=== PATIENT | female | born 1975 | race Caucasian/White ===

== ENCOUNTER 2016-12-08 15:45 | Observation (INO) | payer OTHER ==
[2016-12-08] MEDS ORDERED: Sodium Chloride 0.9% 1000 ML 1,000 ML IV STA (17:41)
[2016-12-08] MEDS ORDERED: Zofran 4 MG/2 ML VIAL IV ONE (17:41)
[2016-12-08] MEDS ORDERED: Adacel Vial IM ONE ×2 (17:41→18:02)
[2016-12-08] MEDS ORDERED: Vancomycin 1GM/ Ns 250ML*** 250 ML IV ONE ×2 (17:43→18:02)
[2016-12-08] MEDS ORDERED: Hydromorphone 1 mg/ml Ampule IV ONE (17:44)
--- NOTE | 2016-12-08 17:51 | ERPHSYRPT ---
- History of Present Illness Time Seen by Provider: 12/08/16 17:30 Source: patient Exam Limitations: clinical condition Patient Subjective Stated Complaint: thursday noticed a small abcess and now it is open and draining serous drainage,small amt of redness around site, pt had fever on thursday and started on bactrim Triage Nursing Assessment: pt alert , resp easy, skin w/d. pink walked in , Physician History: PATIENT NOTICED POSSIBLE LOCALIZED SWELLING PIMPLE FROM INSECT BITE TO MID LEFT POSTERIOR THIGH OVER THE PAST 7 DAYS. THE SWELLING, DRAINAGE, AND PAIN PROGRESSIVELY WORSE. HAS ASSOCIATED FEVER, NO IMPROVEMENT AFTER 3 DAY COURSE OF ANTIBIOTICS BACTRIM DS. Method of Injury: unknown Occurred: last week Quality: constant Severity of Pain-Max: moderate Severity of Pain-Current: moderate Lower Extremities Pain: leg: left Modifying Factors: Improves With: movement Associated Symptoms: none Allergies/Adverse Reactions: Penicillins Allergy (Verified 12/08/16 17:24) codeine Adverse Reaction (Verified 12/08/16 17:24) Home Medications: Sulfamethoxazole/Trimethoprim [Bactrim Ds Tablet] 1 ea BID 12/08/16 [History] Hx Tetanus, Diphtheria Vaccination/Date Given: No (2002) Hx Influenza Vaccination/Date Given: No Hx Pneumococcal Vaccination/Date Given: No Immunizations Up to Date: Yes - Review of Systems Constitutional: Fever Eyes: No Symptoms Ears, Nose, & Throat: No Symptoms Respiratory: No Symptoms, No Cough, No Dyspnea Cardiac: No Chest Pain, No Edema, No Syncope Abdominal/Gastrointestinal: No Symptoms, No Abdominal Pain, No Nausea, No Vomiting, No Diarrhea Genitourinary Symptoms: No Dysuria Musculoskeletal: Other (LEFT PAIN, REDNESS, SWELLING) Skin: No Rash Neurological: No Dizziness, No Focal Weakness, No Sensory Changes Psychological: No Symptoms Endocrine: No Symptoms All Other Systems: Reviewed and Negative - Past Medical History Pertinent Past Medical History: No - Past Surgical History Past Surgical History: Yes Gastrointestinal: Cholecystectomy Other Surgical History: tubes in ears - Social History Smoking Status: Current every day smoker Exposure to second hand smoke: Yes Drug Use: none Patient Lives Alone: No - Female History Hx Last Menstrual Period: november - Nursing Vital Signs Nursing Vital Signs: Initial Vital Signs Temperature 98.6 F Temperature Source Oral Pulse Rate 85 Respiratory Rate 16 Blood Pressure [Right Arm] 100/64 Pain Intensity 2 - Physical Exam General Appearance: alert Eyes, Ears, Nose, Throat Exam: moist mucous membranes Neck Exam: non-tender, supple Cardiovascular/Respiratory Exam: chest non-tender, normal breath sounds, regular rate/rhythm, no respiratory distress Gastrointestinal/Abdominal Exam: non-tender, guarding Back Exam: normal inspection, No vertebral tenderness Legs Exam: left leg: soft tissue tenderness (THERE IS A 7MM X 6MM OPEN WOUND LEFT MID POSTERIOR THIGH WITH SURROUNDING FLLUCTUANCE AND ERYTHERM, MARKED SEROSANGUINOUS DRAINAGE), other (LEFT PEDIS PULSE 2+) DTR - Lower Extremities Exam: knee (R): 2+, knee (L): 2+, ankle (R): 2+, ankle ( L): 2+ Neuro/Tendon Exam: normal sensation, normal motor functions Mental Status Exam: alert, oriented x 3, cooperative Skin Exam: normal color, warm, dry SpO2 Interpretation: normal SpO2: 99 Oxygen Delivery: Room Air Ordered Tests: Active Orders 24 hr Category Date Time Status Up Ad Mirella ROUTINE Activity 12/08/16 19:12 Ordered Admission/Status Order ROUTINE Care 12/08/16 19:11 Ordered Call Admit Doctor for Orders ON ADMISSION Care 12/08/16 19:12 Ordered Code Status Order ROUTINE Care 12/08/16 19:11 Ordered IV Care Q6H Care 12/08/16 19:11 Ordered IV Insertion STAT Care 12/08/16 17:41 Active Vital Signs Q4H Care 12/08/16 19:11 Ordered Consult Surgery ROUTINE Cons 12/08/16 19:11 Ordered Regular Diet Diet 12/08/16 Dinner Ordered BLOOD CULTURE Stat Lab 12/08/16 18:05 Received BMP Stat Lab 12/08/16 18:00 Completed CBC W DIFF Stat Lab 12/08/16 18:00 Completed CULTURE,WOUND Stat Lab 12/08/16 18:11 Received Transfer Order Routine Transfer 12/08/16 19:10 Ordered Medication Summary Discontinued Medications Generic Name Dose Route Start Last Admin Trade Name Freq PRN Reason Stop Dose Admin Diphtheria/Tetanus/Acell Pertussis 0.5 ml 12/08/16 17:41 12/08/16 18:10 Adacel Vial IM 12/08/16 17:42 0.5 ml .ONCE ONE Administration Diphtheria/Tetanus/Acell Pertussis Confirm 12/08/16 18:02 Adacel Vial Administered 12/08/16 18:03 Dose 0.5 ml IM .STK-MED ONE Hydromorphone HCl 1 mg 12/08/16 17:44 12/08/16 18:09 Hydromorphone 1 Mg/Ml Ampule IV 12/08/16 17:45 Not Given STAT ONE Hydromorphone HCl Confirm 12/08/16 18:02 Hydromorphone 1 Mg/Ml Ampule Administered 12/08/16 18:03 Dose 1 mg .ROUTE .STK-MED ONE Sodium Chloride 1,000 mls @ 999 mls/hr 12/08/16 17:41 12/08/16 18:08 Sodium Chloride 0.9% 1000 Ml IV 12/08/16 18:41 999 mls/hr .Q1H1M STA Administration Vancomycin HCl 250 mls @ 167 mls/hr 12/08/16 17:43 12/08/16 18:08 Vancomycin 1gm/ Ns 250ml IV 12/08/16 19:12 167 mls/hr STAT ONE Administration Sodium Chloride Confirm 12/08/16 18:02 Sodium Chloride 0.9% 1000 Ml Administered 12/08/16 18:03 Dose 1,000 mls @ ud .ROUTE .STK-MED ONE Vancomycin HCl Confirm 12/08/16 18:02 Vancomycin 1gm/ Ns 250ml Administered 12/08/16 18:03 Dose 250 mls @ ud IV .STK-MED ONE Ondansetron HCl 4 mg 12/08/16 17:41 12/08/16 18:09 Zofran 4 Mg/2 Ml Vial IV 12/08/16 17:42 Not Given STAT ONE Ondansetron HCl Confirm 12/08/16 18:02 Zofran 4 Mg/2 Ml Vial Administered 12/08/16 18:03 Dose 4 mg .ROUTE .STK-MED ONE Lab/Rad Data: Laboratory Result Diagrams 12/08/16 18:00 12/08/16 18:00 Laboratory Results 12/08/16 12/08/16 Range/Units 18:00 18:00 WBC 7.6 (4.0-10.5) K/mm3 RBC 3.87 L (4.1-5.4) M/mm3 Hgb 11.9 L (12.0-16.0) gm/dl Hct 36.2 (35-47) % MCV 93.5 (78-100) fl MCH 30.7 (26-32) pg MCHC 32.9 (32-36) g/dl RDW 12.9 (11.5-14.0) % Plt Count 295 (150-450) K/mm3 MPV 10.6 H (6-9.5) fl Gran % 71.7 H (36.0-66.0) % Lymphocytes % 21.5 L (24.0-44.0) % Monocytes % 4.6 (0.0-12.0) % Eosinophils % 1.8 (0.00-5.0) % Basophils % 0.4 (0.0-0.4) % Basophils # 0.03 (0-0.4) Sodium 140 (136-145) mEq/L Potassium 3.8 (3.5-5.1) mEq/L Chloride 105 (98-107) mEq/L Carbon Dioxide 22.6 (21-32) mEq/L Anion Gap 16.6 H (5-15) MEQ/L BUN 8 L (9-20) mg/dL Creatinine 0.95 (0.55-1.30) mg/dl Estimated GFR > 60 ML/MIN Glucose 85 (70-110) MG/DL Calcium 9.2 (8.5-10.1) mg/dL - Progress Progress Note: 12/08/16 19:06 PATIENT GIVEN IV NORMAL SALINE 1 LITER BOLUS, VANCOMYCIN 1GM IVPB Discussed with : Dario (DISCUSSED WITH DR OLMEDO AT 1910 FOR ADMIT) - Departure Time of Disposition: 19:20 Departure Disposition: Observation Clinical Impression: ABSCESS LEFT POSTERIOR THIGH Condition: Stable Critical Care Time: No Referrals: BERT OLMEDO [Primary Care Provider] -
[2016-12-08] MEDS ORDERED: Zofran 4 MG/2 ML VIAL ONE (18:02)
[2016-12-08] MEDS ORDERED: Hydromorphone 1 mg/ml Ampule ONE (18:02)
[2016-12-08] MEDS ORDERED: Sodium Chloride 0.9% 1000 ML 1,000 ML ONE (18:02)
[2016-12-08 18:23] LABS: BASOPHIL % 0.4 % (0.0-0.4); Eosinophil % 1.8 % (0.00-5.0); Granulocytes % 71.7 % (36.0-66.0); Lymphocytes % 21.5 % (24.0-44.0); Mean Cell Volume 93.5 fl (78-100); Mean Corpuscular Hemoglobin 30.7 pg (26-32); Mean Platelet Volume 10.6 fl (6-9.5); Monocytes % 4.6 % (0.0-12.0); Platelet Count 295 K/mm3 (150-450); Red Blood Count 3.87 M/mm3 (4.1-5.4); Red Cell Distribution Width 12.9 % (11.5-14.0); White Blood Count 7.6 K/mm3 (4.0-10.5)
[2016-12-08 18:40] LABS: ANION GAP 16.6 MEQ/L (5-15); BLOOD UREA NITROGEN 8 mg/dL (9-20); CHLORIDE 105 mEq/L (98-107); Carbon Dioxide 22.6 mEq/L (21-32); Glucose 85 MG/DL (70-110); Potassium 3.8 mEq/L (3.5-5.1); SODIUM 140 mEq/L (136-145)
[2016-12-08] MEDS ORDERED: Zofran 4 MG/2 ML VIAL IV PRN (19:11)
[2016-12-08] MEDS ORDERED: TYLENOL 325 MG PO PRN (19:11)
[2016-12-08] MEDS ORDERED: NORCO 5/325 MG PO PRN (19:14)
[2016-12-08] MEDS: Sodium Chloride 0.9% 1000 ML 1,000 ML IV SCH (20:57)
[2016-12-08] MEDS: CLINDAMYCIN-D5W 600 MG/50 ML*** 50 ML IV SCH (23:17)
[2016-12-09] MEDS: CLINDAMYCIN-D5W 600 MG/50 ML*** 50 ML IV SCH ×3 (06:17→21:20)
[2016-12-09] MEDS ORDERED: MOTRIN 200 MG PO PRN (07:39)
[2016-12-09] MEDS ORDERED: MOTRIN 400 MG PO PRN (07:44)
[2016-12-09] MEDS ORDERED: NON-FORMULARY ITEM (Ranitidine Hcl [Zantac] 150 MG) PO SCH (10:00)
--- NOTE | 2016-12-09 10:06 | HP ---
CHIEF COMPLAINT: Small pimple and pain on the back of the left thigh. HISTORY OF PRESENT ILLNESS: The patient is a 40 year-old white female presented approximately a week ago to outpatient and was begun on Bactrim for small abscess on the posterior thigh. The patient reports it had gotten worse over the ensuing several days. It opened and began draining. She said a skirt maker friend saw it and suggested she go to the hospital emergency room where she was subsequently admitted to the hospital for IV antibiotic treatments. PAST MEDICAL/SURGICAL HISTORY: Cholecystectomy. Bilateral tubes in ears. HOME MEDICATIONS: Includes Zantac 150 mg a day, Bactrim DS twice daily. ALLERGIES: PENICILLIN, CODEINE. SOCIAL HISTORY: The patient is a smoker. PHYSICAL EXAMINATION: Revealed a well-nourished, well-developed 40 year-old white female currently in no obvious distress. Her vital signs showed a temperature 97.8F, pulse 95, respiratory rate 18, blood pressure 89/55. O2 saturations 92% on room air. HEENT: Normocephalic, atraumatic. Pupils equal round reactive to light. Extraocular movements intact. Oropharynx is pink and moist. NECK: Supple without lymphadenopathy, thyromegaly or JVD. CHEST: Clear to auscultation with good air movement bilaterally. HEART: Regular rate and rhythm without murmurs, rubs or gallops. ABDOMEN: Soft, nontender, nondistended without hepatosplenomegaly or masses. EXTREMITIES: Revealed posterior thigh region being erythematous and indurated to approximately 10 cm in diameter. There is a central area that is open and draining of purulent bloody drainage. The patient otherwise has no clubbing, cyanosis or edema. NEUROLOGIC: She is alert and oriented x3 with no focal deficits. LAB DATA AND TESTS: Revealed a white blood cell count of 7,600, hemoglobin 11.9, PLT 295,000. Metabolic panel essentially normal. ASSESSMENT: A patient with draining abscess of the posterior left thigh. She is receiving IV Vancomycin and IV Clindamycin. Surgical consultation will be obtained to see if any further drainage is necessary as well as physical therapy for wound care management.
[2016-12-09] MEDS: VANCOCIN 1 GM VIAL*** 1 GM in Sodium Chloride 0.9% 250 ML 250 ML IV SCH ×2 (11:15→21:56)
[2016-12-09] MEDS: Pepcid 20 MG PO SCH (11:15)
[2016-12-09] MEDS: Sodium Chloride 0.9% 1000 ML 1,000 ML IV SCH ×2 (11:18→19:14)
[2016-12-09] MEDS ORDERED: SUBLIMAZE 100 MCG/2 ML IV ONE (12:49)
[2016-12-09] MEDS ORDERED: Lactated Ringers 0 ML IV ONE (15:05)
[2016-12-09] MEDS: Levofloxacin 500MG/100ML D5W 100 ML IV SCH ×2 (16:42→19:18)
[2016-12-09] MEDS ORDERED: MORPHINE SULFATE 4 MG INJ IV PRN (19:55)
[2016-12-09] MEDS ORDERED: NORCO 5/325 MG PO PRN (19:59)
[2016-12-10] MEDS: CLINDAMYCIN-D5W 600 MG/50 ML*** 50 ML IV SCH (05:33)
[2016-12-10] MEDS ORDERED: Zofran 4 MG/2 ML VIAL IV ONE (08:00)
[2016-12-10] MEDS ORDERED: Decadron 4 MG INJ IV ONE (08:00)
[2016-12-10] MEDS ORDERED: DIPRIVAN 200 MG/20 ML IV ONE (08:00)
[2016-12-10] MEDS ORDERED: TORAdol 30 mg Injection IJ ONE (08:00)
--- NOTE | 2016-12-10 08:18 | CONS ---
CONSULT DATE: 12/09/2016 This patient was seen for Dr. Everton Noland who was consulted yesterday. HISTORY: A 40 year-old female a week or so ago had some sore on her leg treated with Bactrim originally and failed to improve. She ended up in the hospital with IV antibiotics. There was question whether she had underlying necrosis, abscess or infection. It was felt that she may benefit from excisional debridement and drainage. Dr. Noland was consulted. He did not have time and he asked that I come by and check on the patient. PAST MEDICAL HISTORY: Tubes and cholecystectomy in the past. MEDICATIONS: Zantac. She had been on Bactrim previously. She had been on Vancomycin and clindamycin here. ALLERGIES: PENICILLIN, CODEINE. SOCIAL HISTORY: Smoker. REVIEW OF SYSTEMS: Twelve systems reviewed per admission assessment. No current chest pain or palpitations. Just sore on the posterior left thigh. Otherwise she is currently afebrile. LAB DATA AND TESTS: Her white blood cell count 7.6. PHYSICAL EXAMINATION: Vital signs stable. GENERAL: No acute distress. HEENT: Sclera nonicteric. NECK: No JVD. CHEST: Equal excursion, nonlabored breathing. CVS: Regular rate and rhythm. ABDOMEN: Soft. EXTREMITIES: On leg she has inflammation, induration, open wound with question area of some underlying fat necrosis or other deeper infection. NEURO: Alert, moving extremities symmetrically. IMPRESSION: Nonhealing wound left thigh whether there is any fat necrosis that needs excisionally debrided as well as any underlying infection that needs debrided or drained. Will proceed in the OR. General risk of bleeding or infection, risk of nonhealing of the wound possibly requiring other procedures. She understands she will need packing afterwards and heal by secondary intent. She understands all the above as well as general risk of anesthesia, deep venous thrombosis, pulmonary embolism, pneumonia but not limited to. Will proceed with excisional debridement left thigh possible drainage of any other deeper infection depending on operative findings. Again, this patient was seen for Dr. Everton Noland who was consulted.
--- NOTE | 2016-12-10 08:32 | OP ---
SURGERY DATE/TIME: 12/09/2016 1744 PREOPERATIVE DIAGNOSIS: Nonhealing wound left thigh in need of debridement and drainage. POSTOPERATIVE DIAGNOSIS: Nonhealing wound left thigh in need of debridement and drainage. PROCEDURE: Excisional debridement of skin as well as some devitalized subcutaneous fat 4 cm deep, 3 cm long, 2 cm wide down to the underlying fascia and drainage of additional abscess as well. SURGEON: Dr. Berny Kamara. ANESTHESIA: General. ESTIMATED BLOOD LOSS: Minimal. INDICATIONS: As noted above. Risks and benefits explained in detail and not limited to, as outlined per surgery consult and consent obtained. The site was confirmed with the patient in the preoperative holding area. DESCRIPTION OF PROCEDURE AND FINDINGS: The patient is taken to the OR. General anesthesia induced. Placed in lateral position appropriate pad positioning by anesthesia and OR staff. The thigh was prepped and draped in the usual sterile fashion. After official time out and no disagreement with the planned procedure, sharp debridement of surrounding skin that looked like poor quality around the puncture wound area whether this was an insect bite before or not is unclear. Either way dissection was carried down into the some underlying poor quality fat tissue, had some potential fat necrosis and devitalized fat. Dissection was carried deeper. There was some purulence that was drained and cultured. Sharp debridement was taken down 4 cm deep, 3 cm wide as it tunneled more anteriorly as well as 2 cm wide so 4 cm deep, 3 cm long and 2 cm wide. Sharp debridement accomplished down to oozing viable tissue. With some pin point cautery good hemostasis was noted. Copious amount of irrigation irrigating until clear. I felt the patient would benefit from packing. Iodoform 0.5 inch was packed down in the base of the wound. Sterile dressing applied. The patient tolerated the procedure well. There were no immediate complications. Findings discussed with the family out in the waiting area. Again, this patient was seen for Dr. Everton Noland who was consulted yesterday when he was universal branch consultant.
[2016-12-10] MEDS ORDERED: TROUGH DRUG LEVELS IJ ONE (09:30)
[2016-12-10] MEDS: Pepcid 20 MG PO SCH (10:09)
[2016-12-10] MEDS: VANCOCIN 1 GM VIAL*** 1 GM in Sodium Chloride 0.9% 250 ML 250 ML IV SCH (10:09)
--- NOTE | 2016-12-10 10:43 | PCM.DCORD ---
- Discharge Disposition: Home, Self-Care Condition: Stable Prescriptions: New Vancomycin/0.9 % Sod Chloride [Vancomycin 1 G/100Ml-0.9% NaCl] 1 gm IV Q12H # 0 plast..bag Changed Sulfamethoxazole/Trimethoprim [Bactrim Ds Tablet] 1 each PO BID #20 tablet No Action Sulfamethoxazole/Trimethoprim [Bactrim Ds Tablet] 1 ea BID Ibuprofen 200 mg [Motrin 200 mg] 400 mg PO Q4-6HPRN PRN PRN Reason: Pain Acetaminophen 325 mg [Tylenol 325 mg] 650 mg PO Q4-6HPRN PRN PRN Reason: Pain And/Or Fever Ranitidine HCl [Zantac] 150 mg PO DAILY Instructions: Incision and Drainage of a Skin Abscess Additional Instructions: [facility] up with at [facility] 12/17/16@ 9:25a.m. COME TO [facility] FOR YOUR I.V. ANTIBIOTICS. YOU WILL NEED TO ARRIVE TODAY, 12/10/16, AT 5:00 PM. YOU WILL NEED TO REGISTER BEFORE THE FIRST INFUSION. YOU WILL BE ON A SCHEDULE DAILY AT 6:00 AM AND 5:00 PM AND WILL COMPLETE 5 DAYS. Follow up with: BERT OLMEDO [Primary Care Provider] - 12/16/16 10:30 am MINDI MOROCHO [COURTESY STAFF] - 12/17/16 9:25 am Forms: Discharge Instructions, Patient Portal Information
[2016-12-10 12:29] VITALS: BP 101/57; PULSE 88; O2SAT 99
== END 2016-12-10 12:50 | disposition home or self-care (01) ==
LOC: ED 15:45 → MED SURG 20:03
PROVIDERS: ADMIT Family Medicine; ATTEND Family Medicine
PROC: 0JBM0ZZ Excision of Left Upper Leg Subcutaneous Tissue and Fascia, Open Approach (ICD-10-PCS; principal; 2016-12-09)
DX: L02.416 Cutaneous abscess of left lower limb (principal); Z79.899 Other long term (current) drug therapy
CPT/HCPCS: 00400; 36000; 36415; 80048; 80202; 84703; 85025; 87040; 87070; 87077; 87186; 90715; 96360; 96365; 99140; 99285; G0378; J1100; J1170; J1885; J1956; J2405; J2704; J3010; J3370; A9270-GY